=== PATIENT | male | born 1980 | race Caucasian/White ===

== ENCOUNTER → 2018-10-22 | Outpatient (CLI) | payer OTHER ==
--- NOTE | 2018-10-22 16:36 | KCIC ---
MRI study of the upper left arm without contrast Clinical indications: Traumatic tear of the biceps tendon. Injury occurred 3 weeks ago. TECHNIQUE: Noncontrast MRI sequences of the upper left arm were performed in all 3 planes. FINDINGS: There is a complete tear of the distal biceps tendon attachment to the radial tuberosity. The gap measures approximately 3 cm. There is edema seen tracking into the musculotendinous junction more proximally. The brachialis and triceps tendons are intact. No abnormal elbow joint effusion is seen. No marrow infiltrative process or fracture is seen. IMPRESSION: Complete tear of the distal biceps tendon. Electronically signed by: Tony Jackson MD (10/22/2018 4:31 PM) [email or web address]
== END | disposition home or self-care (01) ==
LOC: KCIC MRI 13:42
PROVIDERS: ATTEND Orthopaedic Surgery
DX: S46.212D Strain of muscle, fascia and tendon of other parts of biceps, left arm, subsequent encounter (principal); R60.0 Localized edema; X58.XXXD Exposure to other specified factors, subsequent encounter
CPT/HCPCS: 73218

== ENCOUNTER 2018-11-07 08:31 | Day surgery (SDC) | payer OTHER ==
[~2018-11-07] VITALS: Ht 195.6 cm; Wt 125.6 kg
[~2018-11-07 08:31] MED LIST: HYDROmorphone 2 MG/ML VIAL IV PRN; IV RINGERS,LACTATED 1000ML 1,000 ML IV SCH; LIDOCAINE 1% PF 2 ML VIAL. ID PRN; MORPHINE SULFATE 4 MG/ML VIAL. IV PRN; ONDANSETRON PF 4 MG/2 ML VIAL. IV PRN; PROCHLORPERAZINE 10 MG/2 ML VIAL. IV PRN; ceFAZolin SODIUM 3 GM in IV DEXTROSE 5% 100ML 100 ML IV PRN; fentaNYL PF VIAL 100 MCG/2 ML VIAL IV PRN
--- NOTE | 2018-11-07 11:06 | DISCH ---
DISCHARGE INSTRUCTIONS Condition on Discharge Condition on Discharge: Stable Activity After Discharge Activity Instructions for Disc: Other, see below (full range of motion of left elbow allowable avoid lifting more than about 2 pounds with operative arm) Diet after Discharge Diet after Discharge: Regular Wound Incision Care Wound/Incision Care: Change dressing (May remove dressing in 3 days may then shower as long as no drainage no soaking until wound check in about 10 days) Contacting the DRRc after DC Call your doctor for: Concerns you may have Follow-Up Follow up with: Jason 10 days OPAL DEGROOT MD Nov 07, 2018 11:06
[2018-11-07] MEDS ORDERED: HYDR-3165 PO (11:09)
[2018-11-07] MEDS ORDERED: PROPOFOL 20 ML IV ONE (12:02)
[2018-11-07] MEDS ORDERED: LIDOCAINE 2% PF Vial for OR 5 ML VIAL. ONE (12:02)
[2018-11-07] MEDS ORDERED: ONDANSETRON PF 4 MG/2 ML VIAL. ONE (12:02)
[2018-11-07] MEDS ORDERED: DEXAMETHASONE SOD PHOS 20 MG/5 ML VIAL. ONE (12:02)
[2018-11-07] MEDS ORDERED: BUPIVACAINE MPF 0.5% 30 ML VIAL. ONE (12:08)
[2018-11-07] MEDS ORDERED: ROCURONIUM 50 MG/5 ML VIAL. ONE (12:10)
[2018-11-07] MEDS ORDERED: MIDAZOLAM HCL/PF 2 MG/2 ML VIAL. ONE (12:10)
[2018-11-07] MEDS ORDERED: fentaNYL PF VIAL 250 MCG/5 ML VIAL ONE (12:10)
[2018-11-07] MEDS ORDERED: SEVOFLURANE 61 TO 120 MINUTES. IH ONE (13:18)
[2018-11-07] MEDS ORDERED: GLYCOPYRROLATE 1 MG/5 ML VIAL. ONE (14:14)
[2018-11-07] MEDS ORDERED: NEOSTIGMINE 10 MG/10 ML VIAL. ONE (14:14)
[2018-11-07] MEDS ORDERED: HYDROcodone/APAP 7.5/325MG 1 TAB TABLET ONE (15:24)
[2018-11-07] MEDS ORDERED: HYDROcodone/APAP 7.5/325MG 1 TAB TABLET PO PRN ×2 (15:30→16:00)
[2018-11-07 15:55] VITALS: BP 145/82
[2018-11-07] MEDS ORDERED: SEVOFLURANE > 120 MINUTES. IH ONE (16:11)
--- NOTE | 2018-11-07 21:21 | PDOC4 ---
Operative Note Operative Note Date of surgery: 11/07/2018 Preoperative diagnosis: Left distal biceps rupture Postoperative diagnosis: Same plus severe compromise of distal end of the ruptured tendon Operative procedure: Left distal biceps repair Surgeon: Jason Anesthesia: Gen. Estimated blood loss: 40 mL Complications: None Operative indications: Patient is a 38-year-old male who injured his left arm several weeks ago and has had pain with resisted elbow flexion and extremes of motion. MRI showed a distal biceps rupture with retraction. I gone over with him risks benefits postoperative course of the proposed repair and the rationale for temple of his supination and flexion elbow strength and resolution of pain. Nonoperative treatment would be expected to result in a supination deficit more so than elbow flexion and operative treatment could result in nonhealing nerve or blood vessel damage medical or other anesthetic complications among others and involves a protection phase to let the repaired tendon heal. All his questions were answered he wishes to proceed with surgical evaluation and treatment. Operative text: Patient was identified procedure verified patient placed in the supine position on the operating table. After adequate amounts of general anesthesia were administered the left upper extremity was prepped and draped in standard sterile fashion. No tourniquet was placed. After timeout was performed patient procedure identified and verified a transverse incision was made just distal to the elbow flexion crease and blunt dissection carried out to the course of the biceps tendon.. The tendon was noted to be ruptured with severe diminution of the distal 3-1/2-4 cm of tendon substance with adequate tendon substance noted more proximally. The tendon was mobilized bluntly as much as possible and whip stitched. The radial tuberosity was drilled to a size 8 corresponding to the size of the tendon retracted and. A [employer] zip loop was selected and placed at the far cortex which was drilled only by the small entry guidepin. Zip Loop toggle was flipped and the whip stitched suture ends were tied across the sagittal of the zip loop and due to the shortness of the tendon the elbow was held in a flexed supinated position as the zip loop brought the tendon down into the 8 mm hole in the radial tuberosity. Excellent apposition was noted in the area of the distal diminutive tissue was preserved to help preserve surrounding healing and the additional blue sutures were whipstitched to provide additional reinforcement. And initially testing the range of motion of the elbow the suture fixation failed and an additional zip loop was whipstitched and redeployed as above. After verifying good docking and reinforcement with whip stitching of the blue sutures the elbow was held in a flexed supinated position while thorough irrigation subcutaneous closure with buried Vicryl suture subcuticular Monocryl were applied sterile soft dressings followed by a well-padded Ortho-Glass posterior splint and Aravind wrap were placed. Patient was returned to recovery room in stable condition having tolerated procedure well and postoperative instructions were modified to reflect the avoidance of extending the elbow in the immediate postoperative period and for at least the first 3 weeks. I explained postoperatively the rationale for this change based on the significant compromise of the remaining distal tendon. OPAL DEGROOT MD Nov 07, 2018 21:21
== END 2018-11-07 16:02 | disposition home or self-care (01) ==
LOC: SURG 08:31
PROVIDERS: ATTEND Orthopaedic Surgery
DX: S46.212D Strain of muscle, fascia and tendon of other parts of biceps, left arm, subsequent encounter (principal); Z98.890 Other specified postprocedural states; Z87.891 Personal history of nicotine dependence; Z79.899 Other long term (current) drug therapy; X58.XXXD Exposure to other specified factors, subsequent encounter
CPT/HCPCS: 24341; A7015; C1713; J1100; J2001; J2250; J2405; J2704; J2710; J3010; J3490; J7120